=== PATIENT | male | born 1985 | race Caucasian/White ===

== ENCOUNTER → 2017-01-04 | Day surgery (SDC) | payer OTHER ==
[~2017-01-04] MED LIST: AMLODIPINE-OLM1 EAC3; HYDROCHLOROTH12.5 MG PO; OMEPRAZOLE40 M1 PO; TESTOSTERONE PATCH; XYZAL5 MG PO
--- NOTE | ~2017-01-04 | OR ---
Unit #: [id number] #: [id number] Patient: CATRINA FREEMAN [id number] [address] [place], [place] [address] [id number] MR#: [id number] NAME: CATRINA FREEMAN ROOM: Date of Procedure: 01/04/2017 Admission Date: 01/04/2017 Surgeon: Michael Irving M.D. : 1985 Attending Physician: Michael Irving M.D. Primary Care Physician: Jeremiah Cortés D.O. OPERATIVE REPORT PREOPERATIVE DIAGNOSIS The patient presented with family history of colon cancer and personal history of colon polyps. He therefore came for surveillance colonoscopy. PROCEDURE PERFORMED Colonoscopy up to cecum and terminal ileum with excellent preparation and good visualization. POSTOPERATIVE DIAGNOSES Small internal hemorrhoids. Otherwise, normal examination up to cecum and terminal ileum. The quality of prep was excellent. No polyps were seen. The patient did not have any diverticulosis. RECOMMENDATIONS Repeat colonoscopy in 5 years. SEDATION USED MAC. DESCRIPTION OF PROCEDURE Following detailed explanation of the potential risks and complications of a colonoscopy, namely perforation, bleeding, and complications related to sedation, the patient was brought to GI lab and laid in the left lateral decubitus position. A digital rectal examination was performed, which was normal. Lubricated tip of Olympus videocolonoscope was inserted through the anus and advanced under direct vision. The scope was advanced and passed up to sigmoid into descending colon. No diverticula were seen in this area. The scope was then navigated all the way up to cecum with visualization of the ileocecal valve and the appendiceal orifice. Preparation was excellent with good visualization and photodocumentation was obtained. Last several inches of terminal ileum were also visualized after intubation of the ileocecal valve and appeared normal. Successive segments of the colonic mucosa were examined upon withdrawal and appeared unremarkable. There being no polyps, mass, lesions, AVMs, or diverticula. The patient did have small internal hemorrhoids seen at the anal verge on retroflexion. The scope was then withdrawn. The patient returned to the recovery area. He tolerated the procedure without any postprocedure complications. Dictated by... Michael Irving M.D. Unit #: [id number] #: [id number] Patient: FREEMAN,CATRINA [place] TD: 01/05/2017 03:02 JOB #: [id number] OPERATIVE REPORT Page 1 of 1 X Michael Irving MD PROCEDURE OPERATIVE NOTE
== END | disposition home or self-care (01) ==
LOC: COPS 06:15
DX: Z12.11 Encounter for screening for malignant neoplasm of colon (principal); K64.8 Other hemorrhoids; I10 Essential (primary) hypertension; F17.210 Nicotine dependence, cigarettes, uncomplicated; Z86.010 Personal history of colon polyps; Z80.0 Family history of malignant neoplasm of digestive organs; Z79.899 Other long term (current) drug therapy